=== PATIENT | male | born 1990 ===

== ENCOUNTER 2022-09-18 14:55 | Emergency (ER) | payer SELFPAY ==
[~2022-09-18] VITALS: Ht 172.7 cm; Wt 88.6 kg
[2022-09-18 15:11] VITALS: TEMP 97.3
[2022-09-18 18:56] VITALS: BP 137/95; PULSE 68
== END 2022-09-18 18:57 | disposition home or self-care (01) ==
LOC: COL.ER 14:55
DX: S01.111A Laceration without foreign body of right eyelid and periocular area, initial encounter (principal); Z23 Encounter for immunization; W25.XXXA Contact with sharp glass, initial encounter; Y92.59 Other trade areas as the place of occurrence of the external cause; Y99.0 Civilian activity done for income or pay